=== PATIENT | male | born 1980 | race Caucasian/White ===

== ENCOUNTER 2017-12-10 09:30 | Outpatient (CLI) | payer OTHER, BC ==
[~2017-12-10 09:30] MED LIST: ISOVUE-370 76%-LOCM 1 ML ONE
== END 2017-12-10 09:31 | disposition home or self-care (01) ==
LOC: BICCT 09:30
PROVIDERS: ATTEND Internal Medicine
DX: R93.3 Abnormal findings on diagnostic imaging of other parts of digestive tract (principal); K76.0 Fatty (change of) liver, not elsewhere classified
CPT/HCPCS: 74170

== ENCOUNTER 2021-01-23 14:33 | Outpatient (CLI) | payer OTHER, BC | END 2021-01-23 14:34 | disposition home or self-care (01) | LOC: BICRAD 14:33 | PROVIDERS: ATTEND Family Medicine | DX: R07.81 Pleurodynia (principal); R05 Cough | CPT/HCPCS: 71046 ==